=== PATIENT | male | born 1965 | race Caucasian/White ===

== ENCOUNTER 2020-01-11 21:37 | Emergency (ER) | payer MEDICAID ==
[~2020-01-11] VITALS: Ht 167.6 cm; Wt 77.1 kg
--- NOTE | 2020-01-11 21:59 | NUR ---
BIB EMS PICKED UP FROM THE BUS STATION C/O ETOH. "I NEED A SHOT OF ATIVAN". PT AAOX3, VSS. CALM & COOPERATIVE. RR EVEN & UNLABORED. DENIES CP, SOB, DIZZINESS, N/V AT THIS TIME. PT EVAL'D BY SUNDEEP ESPINAL. WILL CONT TO MONITOR.
[2020-01-11 22:16] LABS: BASOPHILS # (AUTO) 0.1 /CMM (0.0-0.2); BASOPHILS % (AUTO) 2.9 % (0.0-2.0); HEMATOCRIT 39 % (39-51); LYMPHOCYTES # (AUTO) 1.2 /CMM (0.8-4.8); LYMPHOCYTES % (AUTO) 28.2 % (20.0-44.0); MEAN CORPUSCULAR HGB CONC 33 g/dl (31.0-36.0); MEAN CORPUSCULAR VOLUME 97 fL (80-96); MONOCYTES # (AUTO) 0.6 /CMM (0.1-1.30); MONOCYTES % (AUTO) 13.8 % (2.0-12.0); NEUTROPHILS # (AUTO) 2.1 /CMM (1.8-8.9); NEUTROPHILS % (AUTO) 50.1 % (43.0-81.0); PLATELET COUNT (AUTO) 180 /CMM (150-450); RED BLOOD CELL COUNT(AUTO) 4.04 MIL/uL (4.5-6.0); WHITE BLOOD COUNT (AUTO) 4.1 K/uL (4.3-11.0)
--- NOTE | 2020-01-11 22:34 | NUR ---
Patient is resting comfortably in bed with eyes closed. Easily aroused. VSS. URINE COLLECTED & SENT TO LAB.
[2020-01-11 22:40] LABS: ALBUMIN 3.7 g/dL (3.4-5.0); BILIRUBIN,DIRECT 0.1 mg/dL (0.0-0.2); BILIRUBIN,TOTAL 0.3 mg/dL (0.2-1.0); CALCIUM, SERUM 7.9 mg/dL (8.5-10.1); CREATININE 1.1 mg/dL (0.6-1.3); POTASSIUM 3.6 mmol/L (3.5-5.1); SALICYLATE 7.1 mg/dL (2.8-20.0); TOTAL PROTEIN, SERUM 6.6 g/dL (6.4-8.2)
[2020-01-11 23:42] LABS: APPEARANCE,URINE CLEAR (CLEAR); BILIRUBIN,URINE SMALL (NEGATIVE); BLOOD, URINE NEGATIVE Ery/uL (NEGATIVE); COLOR,URINE YELLOW (YELLOW); KETONES,URINE TRACE (NEGATIVE); LEUKOCYTE ESTERASE ,URINE NEGATIVE (NEGATIVE); NITRITE, URINE NEGATIVE (NEGATIVE); PROTEIN,URINE TRACE mg/dl (NEGATIVE); UGLUCOSE NEGATIVE (NEGATIVE)
[2020-01-12 00:13] LABS: BACTERIA,URINE None seen /HPF (None Seen); RBC,URINE 0-2 /HPF (0-2); SQUAMOUS EPITHELIAL CELL,UR Few /HPF (None Seen); WBC,URINE 0-2 /HPF (0-3)
--- NOTE | 2020-01-12 00:16 | NUR ---
PT ASLEPP, EASILY AROUSABLE, NO ACUTE DISTRESS NOTED, RESP EVEN AND UNLABORED. NO PAIN OR DISCOMFORT NOTED. CALL LIGHT WITHIN REACH. WILL CONTINUE TO MONITOR PT CLOSELY. 1:1 SITTER REMAINS AT BEDSIDE.
--- NOTE | 2020-01-12 05:01 | NUR ---
KAYLEE PANTOJA CHERRY CUTTER AT BEDSIDE TO HARJINDER PT. PT CALM AND COOPERATIVE AT THIS TIME.
[2020-01-12 05:46] VITALS: BP 118/78
--- NOTE | 2020-01-12 05:46 | NUR ---
Patient discharged to home in stable condition. Written and verbal after care instructions given. Patient verbalizes understanding of instruction. Pt ambulated with steady gait. vss.
== END 2020-01-12 05:46 | disposition home or self-care (01) ==
LOC: ER 21:41
DX: F10.129 Alcohol abuse with intoxication, unspecified (principal); R45.851 Suicidal ideations; R41.82 Altered mental status, unspecified; F31.9 Bipolar disorder, unspecified; Y90.8 Blood alcohol level of 240 mg/100 ml or more; Z88.0 Allergy status to penicillin; Z91.012 Allergy to eggs; Z59.0 Homelessness
CPT/HCPCS: 36415; 71045; 80048; 80076; 80305; 80307; 80329; 81001; 85025; 99285; G0480; 81000-TC

== ENCOUNTER 2020-07-07 12:03 | Emergency (ER) | payer MEDICAID ==
[~2020-07-07] VITALS: Ht 172.7 cm; Wt 90.7 kg
--- NOTE | 2020-07-07 13:59 | NUR ---
URINE SAMPLE COLLECTED AND SENT TO LAB
[2020-07-07 14:13] LABS: BASOPHILS # (AUTO) 0.1 /CMM (0.0-0.2); CALCIUM, SERUM 7.9 mg/dL (8.5-10.1); CREATININE 0.9 mg/dL (0.6-1.3); EOSINOPHILS % (AUTO) 6.1 % (0.0-6.0); HEMATOCRIT 42 % (39-51); LYMPHOCYTES # (AUTO) 1.6 /CMM (0.8-4.8); MEAN CORPUSCULAR HGB CONC 33 g/dl (31.0-36.0); MEAN CORPUSCULAR VOLUME 90 fL (80-96); MONOCYTES # (AUTO) 1.2 /CMM (0.1-1.30); MONOCYTES % (AUTO) 13.2 % (2.0-12.0); NEUTROPHILS # (AUTO) 5.8 /CMM (1.8-8.9); NEUTROPHILS % (AUTO) 62.7 % (43.0-81.0); PLATELET COUNT (AUTO) 243 /CMM (150-450); POTASSIUM 3.7 mmol/L (3.5-5.1); RED BLOOD CELL COUNT(AUTO) 4.65 MIL/uL (4.5-6.0); WHITE BLOOD COUNT (AUTO) 9.3 K/uL (4.3-11.0)
[2020-07-07 14:21] LABS: ALBUMIN 3.4 g/dL (3.4-5.0); BILIRUBIN,DIRECT 0.1 mg/dL (0.0-0.2); BILIRUBIN,TOTAL 0.2 mg/dL (0.2-1.0); TOTAL PROTEIN, SERUM 6.6 g/dL (6.4-8.2)
[2020-07-07 14:35] LABS: BILIRUBIN,URINE NEGATIVE (NEGATIVE); COLOR,URINE YELLOW (YELLOW); LEUKOCYTE ESTERASE ,URINE NEGATIVE (NEGATIVE); NITRITE, URINE NEGATIVE (NEGATIVE); PH,URINE 5.5 (5.0-8.0); PROTEIN,URINE NEGATIVE (NEGATIVE); UGLUCOSE NEGATIVE (NEGATIVE); UROBILINOGEN,URINE 0.2 EU/dL (0.2)
--- NOTE | 2020-07-07 15:52 | NUR ---
SS Note: SW attempted to meet with pt. to conduct ETOH interventions. However, pt. sleeping and not rousable to verbal cues. This pt. is a 55 year old male who was BIBRA for public intoxication. per EMR. SW left addiction resources in patient's discharge packet in chart. SW provided pt. wiht the following resources: Substance Abuse resources provided included: [facility] Substance Abuse Self-Helpline ([facility]) ; CRI -HELP 92176 [facility]. [place] [address] ; [facility] 70182 [facility] 61872 ; [facility] 04972 [facility] 91304 ; [facility] 400 [facility] [phone] ; [facility] 4336 Gadiel Vitale [facility] [address]1403 ; [facility] 909 Community Healthvd[facility] Blind Babies [phone] ; [facility] Substance Abuse Helpline([facility])-[facility] ; Action Family [facility] ; [facility]; [facility] [place]; Cri-Help [place]; I-ADARP Inter Agency Drug Abuse Recovery Gadiel Vitale; [facility] [place]; [facility] [place]; [facility], [facility]. [place]; Alcoholics Anonymous -SFV; Gj-Bqjq-Opffwzu ; Marijuana Anonymous -SFV; Narcotics Anonymous www.na.org; Mental Health resources provided: [facility] [address] [place], [place] [address] ; [facility] Health [place], [facility]. 91584 [facility] [address], [place], [place] [id number] ; [facility] [address] [place] [address] ; [facility] [address] [place], [place] [id number] Healthcare Clinics: [facility] 6551 [facility], [address] [place]. [place] ; [facility] 6801 [facility] [address] [place] [address]; [facility] [address] [place] [address] [phone]
--- NOTE | 2020-07-07 21:18 | NUR ---
PATIENT IS AMBULATORY WITH A STEADY GAIT. PATIENT IS AAOX4. NO SOB. BREATHING EVENLY AND UNLABORED ON ROOM AIR. PT'S DISCHARGE VITALS, 134/67 96HR. 99% 16RR. PATIENT IS CALLING UBER TO PICK HIM UP.
[2020-07-07] MEDS: LORAZEPAM 1 MG TABLET PO ONE (21:21)
--- NOTE | 2020-07-07 21:23 | NUR ---
Patient discharged to home in stable condition. Written and verbal after care instructions given. Patient verbalizes understanding of instruction.
[2020-07-07] MEDS ORDERED: LORAZEPAM 1 MG TABLET ONE (21:24)
[2020-07-07] MEDS ORDERED: LORAZEPAM 0.5 MG TABLET ONE (21:26)
[2020-07-07 21:43] VITALS: BP 134/76
== END 2020-07-07 21:33 | disposition home or self-care (01) ==
LOC: ER 12:20
DX: S00.01XA Abrasion of scalp, initial encounter (principal); S00.81XA Abrasion of other part of head, initial encounter; R51.9 Headache, unspecified; R00.0 Tachycardia, unspecified; F10.129 Alcohol abuse with intoxication, unspecified; F31.9 Bipolar disorder, unspecified; Y90.8 Blood alcohol level of 240 mg/100 ml or more; Z88.0 Allergy status to penicillin; Z91.012 Allergy to eggs; Z59.0 Homelessness; X58.XXXA Exposure to other specified factors, initial encounter; Y93.89 Activity, other specified; Y92.89 Other specified places as the place of occurrence of the external cause; Y99.8 Other external cause status
CPT/HCPCS: 36415; 70450-TC; 80048-TC; 80076-TC; 85025-TC; G0480

== ENCOUNTER 2020-10-20 10:17 | Emergency (ER) | payer MEDICAID ==
[~2020-10-20] VITALS: Ht 172.7 cm; Wt 65.8 kg
--- NOTE | 2020-10-20 10:30 | NUR ---
The patient is [id number], from street, +SI but no plan,admits on drinking 3 bottles of wine. Safety check done. Sitter at the bedside. Will continue to monitor the patient.
--- NOTE | 2020-10-20 10:33 | NUR ---
called security for wanding
[2020-10-20 10:58] LABS: BASOPHILS # (AUTO) 0.1 /CMM (0.0-0.2); BASOPHILS % (AUTO) 1.1 % (0.0-2.0); EOSINOPHILS % (AUTO) 3.3 % (0.0-6.0); HEMATOCRIT 40 % (39-51); HEMOGLOBIN 13.4 g/dL (13.5-17.5); LYMPHOCYTES # (AUTO) 1.5 /CMM (0.8-4.8); LYMPHOCYTES % (AUTO) 26.8 % (20.0-44.0); MEAN CORPUSCULAR HGB CONC 33 g/dl (31.0-36.0); MEAN CORPUSCULAR VOLUME 94 fL (80-96); MONOCYTES # (AUTO) 0.5 /CMM (0.1-1.30); MONOCYTES % (AUTO) 9.5 % (2.0-12.0); NEUTROPHILS # (AUTO) 3.3 /CMM (1.8-8.9); NEUTROPHILS % (AUTO) 59.3 % (43.0-81.0); PLATELET COUNT (AUTO) 234 /CMM (150-450); RED BLOOD CELL COUNT(AUTO) 4.31 MIL/uL (4.5-6.0); WHITE BLOOD COUNT (AUTO) 5.5 K/uL (4.3-11.0)
[2020-10-20 11:00] LABS: BILIRUBIN,URINE Negative (NEGATIVE); COLOR,URINE YELLOW (YELLOW); LEUKOCYTE ESTERASE ,URINE Negative (NEGATIVE); NITRITE, URINE Negative (NEGATIVE); PH,URINE 6.5 (5.0-8.0); PROTEIN,URINE Negative (NEGATIVE); UGLUCOSE Negative (NEGATIVE); UROBILINOGEN,URINE 0.2 EU/dL (0.2)
[2020-10-20 11:05] LABS: POTASSIUM 3.8 mmol/L (3.5-5.1)
[2020-10-20 11:12] LABS: ALBUMIN 3.6 g/dL (3.4-5.0); BILIRUBIN,DIRECT 0.1 mg/dL (0.0-0.2); BILIRUBIN,TOTAL 0.2 mg/dL (0.2-1.0); TOTAL PROTEIN, SERUM 6.8 g/dL (6.4-8.2)
[2020-10-20 11:43] LABS: CALCIUM, SERUM 8.5 mg/dL (8.5-10.1)
--- NOTE | 2020-10-20 15:33 | NUR ---
Plan: YAO referred pt. to [facility] [[address] [place] [address] FAX:[phone]] for inpatient psychiatric treatment.
--- NOTE | 2020-10-20 15:50 | NUR ---
"SS Consult: PARKER Cloud requested for this 55-year old male who presents to the ED with c/o SI w/plan. However, pt. refused to specify stating, It would be pointless if I told you my plan. YAO explored triggers for SI. Pt. stated hopelessness is what triggers the SI. YAO explored pt.s mental health Hx. Pt. states he sees a psychiatrist, Nghia Connell via Zoom at [facility] [[email or web address]; [address] [place] [address]; ]. Pt. stated he has been diagnosed with Bipolar 1 and is non-compliant with his psych medications. SW offered pt. voluntary psych Tx. and pt. agreed. YAO explored pt.s living situation, support system and alcohol use. Patient stated that he was renting an apartment with other men who are trying to remain sober and it is not an official sober living. Patient stated he has been experiencing homelessness the last 4 days since he relapsed into alcoholism. Pt. stated he goes on binges that can last weeks. Per pt. he drinks about 5 liters of wine/ daily. Pt. stated that he has no support system: no or children and does not communicate with family. Plan: YAO referred pt. to [facility] [[facility] [place] [address] FAX:[phone]] for inpatient psychiatric treatment. Patient signed homeless waiver & it was placed in the pt.s chart. YAO provided pt. with homeless resources and he accepted them: Addendum: 10/20/20 at 1551 by JAQUAN SAMAYOA Resources provided include: Substance Abuse resources provided included: [facility] Substance Abuse Self-Helpline ([facility]) ; CRI -HELP 89436 [facility]. [place] [address] ; [facility] [place] 62588 [facility] [address] ; [facility] 07352 [place] [facility] [address] ; [facility] 400 NNorthwestern Medical Center [address] ; [facility] 6431 Gadiel Vitale [facility] [address] ; Enviance 90 [facility] Al[facility] Regional[facility] [id number] ; Community [facility] Substance Abuse Helpline([facility])-[facility] ; [facility] ; [facility] [place]; Cri-Help [place]; I-ADARP Inter Agency Drug Abuse Recovery Gadiel Vitale; [place] [facility] [place]; [facility] [place]; [facility] [place]; [facility] [place]; Alcoholics Anonymous -SFV; Kp-Zynz-Veewulg ; Marijuana Anonymous -SFV; Narcotics Anonymous www.na.org; Year-round shelters: [facility] [address] [place] [address] ; [facility] [place] [address] [place] [address]; [place] [facility] [address] [facility] [address] Winter Shelters: Rasheed Morris Silvia Provider: Volunte[facility] Wendi [place] Address: [address]. [place], [address] # of Beds: 47 Population Served: [facility] 6 | [facility] Jennifer Schwab [place]ber[place] Provider: Home at Last Address: [address], [address] # of Beds: 66 Population Served: [facility] Qawalangin Elberta Provider: First to Serve Address: 93339 [facility], [address] # of Beds: 56 Population Served: [facility] Ric Gautam Park Provider: SSDanielle/Ms. Vivas'chantelle House Address: 8908 [facility], [address] # of Beds: 49 Population Served: [facility] 8 | [facility] Provider: First to Serve Address: 3535 [facility]. [place], [address] # of Beds: 37 Population Served: [facility] Hygiene: [employer] [employer]: [address] [place] [facility] ; [place] [place] [facility] [address]252 [facility] ; [facility] 3871 [facility] . Food Resources: [place] Food Pantry at [facility]- 5700 [facility]; Meet Each Need with Dignity ([facility]) 32069 Van Ness CampusMitzi Aldrich; [facility] Food Pantry 9361 [facility]; [facility] 2989 [facility]. Mental Health resources provided: [facility] [address] [place] , [place] [address] ; [facility] Mental Health [place], Inc. 91935 [facility] [address], [place] [address] ; [facility] Urgent Care Center 35151 [place] [address] ; [facility] [address] [place], [place] [id number] Healthcare Clinics: [facility] [address] [place], [address] [place]. [place] ; [facility] 6801 [facility] [address] [place] [address]; [place] [address] [place] [address] [phone]) [phone] Counseling--Outpatient [facility] 4419 [facility], [place] [address] (Specializes in in-depth psychotherapy for emotional distress: anxiety, depression, interpersonal conflicts, life transitions, childhood abuse) [facility] [address] [place] [address] (Assist with solving problem marital difficulties, separation & divorce, aging parents, & grief, chronic & terminal illness) [facility] [address] [place] [address] (Deal with loss & grief, anxiety, marital difficulties) Homebound/Mental Health Services 43894 Pramodanthony [facility], [address] [place] [address] (Provide in-home mental services to people who are incapable of leaving their homes) Organization for Needs of the Elderly Senior Service/Resource Center [address] [place] [address] [facility] 6514 Flowers [place] [address] PSYCHIATRIC OUTPATIENT SERVICES [facility] Partial Hospitalization and Intensive Outpatient Program (Managed Care and [place] Only)[address]24 Yogi Barba. [facility] [phone] [place] [facility] Partial Hospitalization and Outpatient [id number] [place] [facility]. [address] [place], [place] [phone] [facility] Partial Hospitalization and Outpatient [id number] Gadiel Vitale [facility]. [place], [place] [phone] [facility]ITAL[facility] Community [facility] [id number] [address]. [address] [place], [place] [phone] [facility] Win[facility]red Partial Hospitalization and Outpatient [id number] [facility] Gadiel Vitale, [phone] "
--- NOTE | 2020-10-20 18:37 | NUR ---
covid 19 swab collected and sent to lab.
--- NOTE | 2020-10-20 19:42 | NUR ---
RAPID IS NEGATIVE COVID
--- NOTE | 2020-10-20 20:12 | NUR ---
PT AAOX4. STILL C/O SUICIDAL IDEATION WITH PLAN TO JUMP OFF BRIDGE. PT REQUESTING VOLUNTARY ADMISSION TO PSYCH FACILITY. AWARE
[2020-10-20] MEDS ORDERED: LORAZEPAM 1 MG TABLET PO ONE (21:00)
[2020-10-20] MEDS ORDERED: LORAZEPAM 1 MG TABLET ONE (21:22)
--- NOTE | 2020-10-21 00:18 | NUR ---
BRENNON FRANKLIN AT [facility] INTAKE PT WILL BE UNDER DR MENDENHALL AT UNIT 2.
--- NOTE | 2020-10-21 00:25 | NUR ---
CALLED [facility] FOR [facility]SPORTATION. WILL CALL BACK WITH ETA. RESERVATION #[id number]
--- NOTE | 2020-10-21 01:30 | NUR ---
[facility] ETA [phone]
[2020-10-21 02:45] VITALS: BP 138/83
--- NOTE | 2020-10-21 02:46 | NUR ---
REPORT GIVEN TO ESTHER JUAREZ FROM [facility] FOR GABRIELLE
--- NOTE | 2020-10-21 02:48 | NUR ---
REPORT GIVEN TO [facility] AT [facility] FOR TRANSPORTATION GABRIELLE
== END 2020-10-21 02:56 ==
LOC: ER 10:23
DX: R45.851 Suicidal ideations (principal); F10.229 Alcohol dependence with intoxication, unspecified; Y90.8 Blood alcohol level of 240 mg/100 ml or more; F31.9 Bipolar disorder, unspecified; Z91.012 Allergy to eggs; Z88.0 Allergy status to penicillin; Z91.013 Allergy to seafood; Z20.822 Contact with and (suspected) exposure to COVID-19
CPT/HCPCS: 36415; 80048; 80076; 80143; 80307; 80320 ×2; 81003; 85025; 87426; 99285; C9803; G0480

== ENCOUNTER 2020-12-16 03:46 | Emergency (ER) | payer MEDICAID, OTHER ==
[~2020-12-16] VITALS: Ht 170.2 cm; Wt 72.6 kg
--- NOTE | 2020-12-16 03:50 | NUR ---
TO ER BED REQUESTING MEDICAL CLEARANCE FOR VOLUNTARY PSYCH ADMISSION. PT C/O SI WITH PLAN TO HANG SELF. DENIES HI. PT AAOX4 NO ACUTE DISTRESS NOTED, RESP EVEN AND UNLABORED. PT CALM AND COOPERATIVE AT THIS TIME.
--- NOTE | 2020-12-16 05:07 | NUR ---
URINE SAMPLE COLLECTED AND SENT TO LAB.
--- NOTE | 2020-12-16 05:09 | NUR ---
LICENSE EXAMINER AT BEDSIDE FOR BLOOD DRAW.
--- NOTE | 2020-12-16 05:15 | NUR ---
BLOOD DRAWN BY NEWS INTERNSHIP.
[2020-12-16 05:27] LABS: BASOPHILS # (AUTO) 0.1 K/uL (0.0-0.2); BASOPHILS % (AUTO) 1.1 % (0.0-2.0); EOSINOPHILS % (AUTO) 4.3 % (0.0-6.0); HEMATOCRIT 46 % (39-51); HEMOGLOBIN 15.7 g/dL (13.5-17.5); LYMPHOCYTES # (AUTO) 1.5 K/uL (0.8-4.8); LYMPHOCYTES % (AUTO) 21.7 % (20.0-44.0); MEAN CORPUSCULAR HGB CONC 34 g/dl (31.0-36.0); MEAN CORPUSCULAR VOLUME 93 fL (80-96); MONOCYTES # (AUTO) 0.9 K/uL (0.1-1.30); MONOCYTES % (AUTO) 12.6 % (2.0-12.0); NEUTROPHILS # (AUTO) 4.2 K/uL (1.8-8.9); NEUTROPHILS % (AUTO) 60.3 % (43.0-81.0); PLATELET COUNT (AUTO) 286 K/uL (150-450); RED BLOOD CELL COUNT(AUTO) 4.99 MIL/uL (4.5-6.0)
[2020-12-16 05:28] LABS: BILIRUBIN,URINE SMALL (NEGATIVE); COLOR,URINE YELLOW (YELLOW); LEUKOCYTE ESTERASE ,URINE Negative (NEGATIVE); NITRITE, URINE Negative (NEGATIVE); PROTEIN,URINE 30 mg/dl (NEGATIVE); UGLUCOSE Negative (NEGATIVE); UROBILINOGEN,URINE 0.2 EU/dL (0.2)
[2020-12-16 05:38] LABS: CALCIUM, SERUM 9.5 mg/dL (8.5-10.1); CREATININE 1.4 mg/dL (0.6-1.3); POTASSIUM 3.6 mmol/L (3.5-5.1)
[2020-12-16 05:45] LABS: ALBUMIN 4.4 g/dL (3.4-5.0); BILIRUBIN,DIRECT 0.2 mg/dL (0.0-0.2); BILIRUBIN,TOTAL 0.6 mg/dL (0.2-1.0)
--- NOTE | 2020-12-16 06:24 | NUR ---
CLINICAL AND FACESHEET FAXED TO [facility] FOR VOLUNTARY PSYCH ADMISSION.
[2020-12-16 06:28] VITALS: BP 134/62
--- NOTE | 2020-12-16 10:09 | NUR ---
THE PATIENT ALERT AND ORIENTED X4. DENIES HAVING ANY DISTRESS. RESPIRATION REGULAR AND UNLABORED. WILL CONTINUE TO MONITOR THE PATIENT.
--- NOTE | 2020-12-16 10:16 | NUR ---
PT ACCEPTED TO [facility] UNIT [address] MADDEN CALL [phone] FOR REPORT.
--- NOTE | 2020-12-16 10:23 | NUR ---
TRANSPORT [facility] CALLED DAWNA RUTLEDGE 45 MINS.
--- NOTE | 2020-12-16 10:32 | NUR ---
REPORT GIVEN TO NURSE BRITTANY FROM KASSI MCCLELLAN
--- NOTE | 2020-12-16 10:35 | NUR ---
"SS Consult: SS consult requested for SI, ETOH abuse & Homelessness. The pt. is a 55-year old male. The pt. appears well-groomed with swollen feet. The pt. is A&O X4 and makes good eye contact and appears restless and fidgeting. Pt.s mood is elevated has pressure speech and circumstantial thought process. Pt. stated he came [facility] seeking medical clearance to go to [facility] as he has been experiencing SI W/no plan. Pt. states he has had a manic episode the last couple of days. Per pt. he was experiencing auditory hallucinations where he hears bullets and has been running. Per pt., I thought people were trying to hurt me. YAO explored pt.s living situation. Pt. states he has been homeless for a a while. YAO explored pt.s mental health Hx. Pt. states he has been diagnosed with Bipolar Disorder and has been prescribed Seroquel, Elavil and Naltrexone. However, pt. states he is unable to afford the copay and therefore has been non complaint with these medication as of late. Pt. stated he is employed and his employer will hold his job until he is stable enough to work. YAO explored pt.s drug & ETOH use. Patient stated he is an alcoholic and stated, probably since the age of 17 and states he may have taken Ecstacy yesterday when he was having a manic episode. Pt. states he is ambulatory. YAO explored pt.s support system. Pt. states he has a brother Stu Valdes [phone]. Plan: YAO referred pt. to [facility] [[address] [place] [address] FAX:[phone]] for inpatient psychiatric treatment. Patient requested to be referred to a residential rehab facility for alcoholism for after he is discharged from [facility]. YAO will follow up and make referrals. Pt. signed homeless waiver and it was placed in the chart. YAO provided pt. with homeless, and mental health resources and he accepted them : Year-round shelters: [place] [address] [address] ; [facility] [place] [address] [place] [address]; [place] [facility] [address] [facility] [address] Winter Shelters: Rasheed Vega Provider: Lorena of Wendi [place] Address: [address]. [place], [address] # of Beds: 47 Population Served: [facility] 6 | [facility] Jennifer Schwab [place] Provider: Home at Last Address: [address] [place] [address], [address] # of Beds: 66 Population Served: [facility] [place] S[place]tuck Provider: First to Serve Address: [address] [facility], [address] # of Beds: 56 Population Served: [facility] Rci Gautam Park Provider: /Ms. Vivas's House Address: 8908 [facility], [address] # of Beds: 49 Population Served: [facility] 8 | [facility] Provider: First to Serve Address: 3535 [facility]. [place], [address] # of Beds: 37 Population Served: [facility] Hygiene: [place] [employer]: [address] [place] luz [place] ; [facility] [address]006 [facility] ; [facility] 5833 [facility] . Food Resources: [place] Food Pantry at [facility]- 5700 [facility]; Meet Each Need with Dignity ([facility]) 91312 [facility]; [facility] Food Pantry 9217 [facility]; [facility] 2027 [facility]. Mental Health resources provided: [facility] [address] [place] , [place] [address] ; [facility] Mental Health [place], Inc. 29080 [facility] [address] 2, [place] [address] ; [facility] Urgent Care Center 92300 [place] [address] ; [facility] [address] [place] [address] Healthcare Clinics: [facility] 6551 [facility] [place], [address] [place]. [place] ; [facility] 6801 [facility] [address] [place] [address]; [facility] [address] [facility] [place] [address] [phone] Counseling--Outpatient [facility] 4419 [facility], [place] [address] (Specializes in in-depth psychotherapy for emotional distress: anxiety, depression, interpersonal conflicts, life transitions, childhood abuse) [facility] [address] [place] [address] (Assist with solving problem marital difficulties, separation & divorce, aging parents, & grief, chronic & terminal illness) [facility] [address] [place] [address] (Deal with loss & grief, anxiety, marital difficulties) Homebound/Mental Health Services 41924 PramodKettering Health [facility], [address] [place] [address] (Provide in-home mental services to people who are incapable of leaving their homes) Organization for Needs of the Elderly Senior Service/Resource Center [address] [place] [address] [facility] [address] [place] [address] PSYCHIATRIC OUTPATIENT SERVICES [facility] Partial Hospitalization and Intensive Outpatient Program (Managed Care and [place] Only)[address]502 Yogi Barba. [facility] [phone] [facility] Partial Hospitalization and Outpatient [id number] EllavilleNovant Health Rehabilitation [facility]. [address] [place], [place] [phone] [facility] [id number] Cristian [facility]. [address] [place], [place] [phone] [facility] Winifred Partial Hospitalization and Outpatient Piopdbp59908 Joel Conte, [phone] Substance Abuse resources provided included: [facility] Substance Abuse Self-Helpline ([facility]) ; CRI -HELP [address]86 [facility]. [place] [address] ; [facility] Treatment [place] [address] [facility] [address] ; [facility] Rehabilitation Program 93516 [facility] [address] ; [facility] 400 NNortheastern Vermont [facility] 56461 ; [facility] [address] [facility] [facility] [address] ; [facility] 909 [facility]. [facility] [id number] ; [facility] Substance Abuse Helpline([facility])Mary Starke Harper [facility] ; Action [facility] ; [facility] Salters; [facility]; Cri-Help [place]; I-ADARP Inter Agency Drug Abuse Recovery Gadiel Vitale; [place] [facility] [place]; Dixon Rawlings [place]; TarPrime Healthcare Services [place]; [facility], [facility]. [place]; Alcoholics Anonymous -SFV; Rb-Unmw-Wxtllzb ; Marijuana Anonymous -SFV; Narcotics Anonymous www.na.org;"
--- NOTE | 2020-12-16 10:40 | NUR ---
YAO faxed clinicals to [facility] FAX [phone] TEL [phone] for residential treatment after stabilization at [facility].
--- NOTE | 2020-12-16 11:17 | NUR ---
TRANSPORTED TO [facility] IN STABLE CONDITION.
== END 2020-12-16 11:18 ==
LOC: ER 03:52
DX: R45.851 Suicidal ideations (principal); F19.10 Other psychoactive substance abuse, uncomplicated; F15.10 Other stimulant abuse, uncomplicated; F14.10 Cocaine abuse, uncomplicated; F31.9 Bipolar disorder, unspecified; Z20.822 Contact with and (suspected) exposure to COVID-19; Z91.012 Allergy to eggs; Z88.0 Allergy status to penicillin; Z91.013 Allergy to seafood; Z59.0 Homelessness; F10.20 Alcohol dependence, uncomplicated; Y90.3 Blood alcohol level of 60-79 mg/100 ml
CPT/HCPCS: 36415; 80048; 80076; 80143; 80307; 80320; 81003; 85025; 87426; 99285; C9803; G0480

== ENCOUNTER 2021-04-23 05:14 | Emergency (ER) | payer OTHER ==
[~2021-04-23] VITALS: Ht 167.6 cm; Wt 81.6 kg
[2021-04-23] MEDS ORDERED: LORAZEPAM 1 MG TABLET PO ONE ×2 (05:30→15:30)
--- NOTE | 2021-04-23 05:31 | NUR ---
PATIENT BIBSELF C/O SI WITH PLAN, VOL PSYCH ADMIT, MED CLEARANCE, PLAN TO TO JUMP INTO TRAFFIC DENIES HI. PATIENT IS A/O X 3, RR EVEN AND UNLABORED, NO SOB NOTED. PATIENT CONNECTED TO FUEL EFFICIENT AUTOMOBILE DESIGNER AND POX. BELONGINGS COLLECTED, PT IN HOSPITAL GOWN, SITTER AT BEDSIDE.
--- NOTE | 2021-04-23 05:33 | NUR ---
FEEDER SWITCHBOARD OPERATOR AT BEDSIDE
--- NOTE | 2021-04-23 05:39 | NUR ---
COVID AND URINE COLLECTED AND SENT TO LAB
[2021-04-23 05:56] LABS: BASOPHILS # (AUTO) 0.1 K/uL (0.0-0.2); BASOPHILS % (AUTO) 1.9 % (0.0-2.0); EOSINOPHILS % (AUTO) 3.9 % (0.0-6.0); HEMATOCRIT 36 % (39-51); HEMOGLOBIN 11.9 g/dL (13.5-17.5); LYMPHOCYTES # (AUTO) 2.3 K/uL (0.8-4.8); LYMPHOCYTES % (AUTO) 29.5 % (20.0-44.0); MEAN CORPUSCULAR HGB CONC 34 g/dl (31.0-36.0); MEAN CORPUSCULAR VOLUME 91 fL (80-96); MONOCYTES # (AUTO) 0.8 K/uL (0.1-1.30); MONOCYTES % (AUTO) 10.8 % (2.0-12.0); NEUTROPHILS # (AUTO) 4.2 K/uL (1.8-8.9); NEUTROPHILS % (AUTO) 53.9 % (43.0-81.0); PLATELET COUNT (AUTO) 514 K/uL (150-450); WHITE BLOOD COUNT (AUTO) 7.8 K/uL (4.3-11.0)
[2021-04-23 06:04] LABS: BILIRUBIN,URINE NEGATIVE (NEGATIVE); COLOR,URINE YELLOW (YELLOW); LEUKOCYTE ESTERASE ,URINE NEGATIVE (NEGATIVE); NITRITE, URINE NEGATIVE (NEGATIVE); PH,URINE 5.5 (5.0-8.0); PROTEIN,URINE NEGATIVE (NEGATIVE); UGLUCOSE NEGATIVE (NEGATIVE); UROBILINOGEN,URINE 0.2 EU/dL (0.2)
[2021-04-23 06:29] LABS: CALCIUM, SERUM 8.9 mg/dL (8.5-10.1); CARBON DIOXIDE 26 mmol/L (21-32); CHLORIDE 108 mmol/L (98-107); GLUCOSE 115 mg/dL (74-106); SODIUM SERUM 145 mmol/L (136-145); UREA NITROGEN, BLOOD 11 mg/dL (7-18)
[2021-04-23] MEDS ORDERED: IV NS 0.9% 1,000 ML BAG IV ONE (06:30)
[2021-04-23] MEDS ORDERED: Thiamine 100 MG in IV D5W 50 ML IV SCH (06:30)
[2021-04-23] MEDS ORDERED: Thiamine 100 MG/ML VIAL ONE (06:32)
[2021-04-23 06:37] LABS: ALANINE AMINOTRANSFERASE 42 U/L (12-78); ALBUMIN 3.5 g/dL (3.4-5.0); ALCOHOL, BLOOD 259 mg/dL (0-0); ALKALINE PHOSPHATASE 102 U/L (46-116); ASPARTATE AMINOTRANSFERASE 33 U/L (15-37); BILIRUBIN,DIRECT 0.1 mg/dL (0.0-0.2); BILIRUBIN,TOTAL 0.2 mg/dL (0.2-1.0); TOTAL PROTEIN, SERUM 6.8 g/dL (6.4-8.2)
[2021-04-23 06:47] LABS: ACETAMINOPHEN < 10 ug/ml (10-30)
--- NOTE | 2021-04-23 08:00 | NUR ---
ASSESSED PT ON BED AWAKE AND ALERT, NOT IN RESPIRATORY DISTRESS, V/S STABLE, KEPT RESTED AND COMFORTABLE. FOOD TRAY PROVIDED. WILL CONTINUE TO MONITOR.
[2021-04-23] MEDS ORDERED: LORAZEPAM 1 MG TABLET ONE (15:43)
[2021-04-23 18:12] VITALS: BP 127/72
--- NOTE | 2021-04-23 18:38 | NUR ---
[facility]ED CLIN[facility]
--- NOTE | 2021-04-24 04:27 | NUR ---
FOLLOWED UP WITH [facility] INTA[facility], STILL BEING REVIEWED AND WILL CALL BACK ONCE ACCEPTED.
--- NOTE | 2021-04-24 05:46 | NUR ---
[facility] UNDER THE CARE OF DR. NY. CALL [phone] FOR REPORT.
--- NOTE | 2021-04-24 05:46 | NUR ---
PT ACCEPTED AT [facility] UNDER THE CARE OF DR. NY. CALL [phone] FOR REPORT.
--- NOTE | 2021-04-24 05:47 | NUR ---
REPORT GIVEN TO WALLY SANTANA FOR GABRIELLE
--- NOTE | 2021-04-24 05:59 | NUR ---
[facility] ETA @ 1000
--- NOTE | 2021-04-24 07:20 | NUR ---
PT NOT IN BED, ELOPED. ER MD AWARE. WILL CALL [employer] NON EMERGENCY LINE REGARDING INCIDENT.
--- NOTE | 2021-04-24 07:44 | NUR ---
MADE POLICE REPORT FOR PT. AND NOTIFIED OF PT STATUS AND IV ACCESS
== END 2021-04-24 07:32 | disposition left against medical advice (07) ==
LOC: ER 05:20
DX: F10.129 Alcohol abuse with intoxication, unspecified (principal); Y90.8 Blood alcohol level of 240 mg/100 ml or more; R45.851 Suicidal ideations; F19.10 Other psychoactive substance abuse, uncomplicated; Z20.822 Contact with and (suspected) exposure to COVID-19; F31.9 Bipolar disorder, unspecified; Z59.02 Unsheltered homelessness; R00.0 Tachycardia, unspecified; Z91.012 Allergy to eggs; Z88.0 Allergy status to penicillin; Z91.013 Allergy to seafood
CPT/HCPCS: 36415; 80048; 80076; 80143; 80307; 80320 ×2; 81003; 85025; 87426; 93005; 96365; 99285; C9803; J3411; J7060; G0480

== ENCOUNTER 2021-05-09 00:31 | Emergency (ER) | payer OTHER ==
[~2021-05-09] VITALS: Ht 170.2 cm; Wt 74.8 kg
[2021-05-09 01:45] VITALS: BP 147/77
--- NOTE | 2021-05-09 02:15 | NUR ---
PATIENT BIBSELF C/O +SI WITH PLAN. PATIENT IS A/O X 4, RR EVEN AND UNLABORED, NO SOB NOTED. PATIENT NOTED WITH STEADY GAIT. PATIENT BROUGHT TO ER BED, PLACED IN HOSPITAL GOWN, BELONGINGS PLACED IN LOCKER, SITTER AT BEDSIDE. PATIENT CONNECTED TO STUDENT LIAISON OFFICER AND POX.
[2021-05-09 04:50] LABS: ALANINE AMINOTRANSFERASE 40 U/L (12-78); ALCOHOL, BLOOD 63 mg/dL (0-0); ALKALINE PHOSPHATASE 128 U/L (46-116); ASPARTATE AMINOTRANSFERASE 42 U/L (15-37); BILIRUBIN,DIRECT 0.1 mg/dL (0.0-0.2); BILIRUBIN,TOTAL 0.3 mg/dL (0.2-1.0); CALCIUM, SERUM 8.4 mg/dL (8.5-10.1); CARBON DIOXIDE 23 mmol/L (21-32); CHLORIDE 103 mmol/L (98-107); GLUCOSE 97 mg/dL (74-106); POTASSIUM 3.9 mmol/L (3.5-5.1); SODIUM SERUM 138 mmol/L (136-145); TOTAL PROTEIN, SERUM 7.5 g/dL (6.4-8.2); UREA NITROGEN, BLOOD 19 mg/dL (7-18)
[2021-05-09 05:04] LABS: ACETAMINOPHEN < 2 ug/ml (10-30)
[2021-05-09 06:32] LABS: BILIRUBIN,URINE SMALL (NEGATIVE); COLOR,URINE YELLOW (YELLOW); LEUKOCYTE ESTERASE ,URINE NEGATIVE (NEGATIVE); NITRITE, URINE NEGATIVE (NEGATIVE); PH,URINE 5.5 (5.0-8.0); PROTEIN,URINE NEGATIVE (NEGATIVE); UGLUCOSE NEGATIVE (NEGATIVE); UROBILINOGEN,URINE 0.2 EU/dL (0.2)
[2021-05-09 06:41] LABS: BACTERIA,URINE None seen /HPF (None Seen); CALCIUM OXALATE CRYSTALS,UR Few /HPF (None Seen); RBC,URINE 0-2 /HPF (0-2); SQUAMOUS EPITHELIAL CELL,UR Few /HPF (None Seen); WBC,URINE 0-2 /HPF (0-3)
--- NOTE | 2021-05-09 07:07 | NUR ---
FOLLOWED UP WITH LAB REGARDING DRUG SCREEN AND COVID
--- NOTE | 2021-05-09 09:34 | NUR ---
COVID SWAB DONE AND SENT TO LAB
[2021-05-09 09:55] LABS: BASOPHILS # (AUTO) 0.1 K/uL (0.0-0.2); BASOPHILS % (AUTO) 1.4 % (0.0-2.0); EOSINOPHILS % (AUTO) 7.7 % (0.0-6.0); HEMATOCRIT 37 % (39-51); HEMOGLOBIN 12.4 g/dL (13.5-17.5); LYMPHOCYTES # (AUTO) 1.4 K/uL (0.8-4.8); MEAN CORPUSCULAR HGB CONC 33 g/dl (31.0-36.0); MEAN CORPUSCULAR VOLUME 91 fL (80-96); MONOCYTES # (AUTO) 0.5 K/uL (0.1-1.30); MONOCYTES % (AUTO) 12.1 % (2.0-12.0); NEUTROPHILS # (AUTO) 1.9 K/uL (1.8-8.9); NEUTROPHILS % (AUTO) 45.8 % (43.0-81.0); PLATELET COUNT (AUTO) 298 K/uL (150-450); RED BLOOD CELL COUNT(AUTO) 4.11 MIL/uL (4.5-6.0); WHITE BLOOD COUNT (AUTO) 4.2 K/uL (4.3-11.0)
--- NOTE | 2021-05-09 12:54 | NUR ---
PT NO LONGER IN HOLDING ROOM. PT ELOPED.
== END 2021-05-09 12:56 | disposition left against medical advice (07) ==
LOC: ER 00:31
DX: F19.10 Other psychoactive substance abuse, uncomplicated (principal); F15.10 Other stimulant abuse, uncomplicated; F10.20 Alcohol dependence, uncomplicated; Y90.3 Blood alcohol level of 60-79 mg/100 ml; Z20.822 Contact with and (suspected) exposure to COVID-19; Z53.29 Procedure and treatment not carried out because of patient's decision for other reasons; Z91.012 Allergy to eggs; Z88.0 Allergy status to penicillin; Z91.013 Allergy to seafood; F31.9 Bipolar disorder, unspecified
CPT/HCPCS: 36415; 80048; 80076; 80143; 80307; 80320; 81001; 85025; 87426; 99283; C9803; G0480

== ENCOUNTER 2021-05-10 06:03 | Emergency (ER) | payer OTHER ==
[~2021-05-10] VITALS: Ht 170.2 cm; Wt 74.8 kg
--- NOTE | 2021-05-10 07:46 | NUR ---
BIBS FOR SI WITH A PLAN TO HARM TO SELF BY KEEP DRINKING ALCOHOL. DENIES HI. DENIES HAVING ANY TYPE OF HALLUCINATIONS. RESPIRATION REGULAR AND UNLABORED. WILL CONTINUE TO MONITOR THE PATIENT.
[2021-05-10 08:01] LABS: ALBUMIN 3.7 g/dL (3.4-5.0); BILIRUBIN,TOTAL 0.2 mg/dL (0.2-1.0); CALCIUM, SERUM 8.7 mg/dL (8.5-10.1); POTASSIUM 4.3 mmol/L (3.5-5.1); TOTAL PROTEIN, SERUM 7.3 g/dL (6.4-8.2)
[2021-05-10 08:43] LABS: BASOPHILS % (AUTO) 0.4 % (0.0-2.0); EOSINOPHILS % (AUTO) 5.8 % (0.0-6.0); HEMATOCRIT 38 % (39-51); HEMOGLOBIN 12.5 g/dL (13.5-17.5); LYMPHOCYTES # (AUTO) 1.4 K/uL (0.8-4.8); LYMPHOCYTES % (AUTO) 26.7 % (20.0-44.0); MEAN CORPUSCULAR HGB CONC 33 g/dl (31.0-36.0); MEAN CORPUSCULAR VOLUME 91 fL (80-96); MONOCYTES # (AUTO) 0.4 K/uL (0.1-1.30); MONOCYTES % (AUTO) 6.6 % (2.0-12.0); NEUTROPHILS # (AUTO) 3.3 K/uL (1.8-8.9); NEUTROPHILS % (AUTO) 60.5 % (43.0-81.0); PLATELET COUNT (AUTO) 365 K/uL (150-450); RED BLOOD CELL COUNT(AUTO) 4.16 MIL/uL (4.5-6.0); WHITE BLOOD COUNT (AUTO) 5.4 K/uL (4.3-11.0)
[2021-05-10 09:44] LABS: BILIRUBIN,URINE NEGATIVE (NEGATIVE); COLOR,URINE YELLOW (YELLOW); LEUKOCYTE ESTERASE ,URINE NEGATIVE (NEGATIVE); NITRITE, URINE NEGATIVE (NEGATIVE); PH,URINE 5.5 (5.0-8.0); PROTEIN,URINE NEGATIVE (NEGATIVE); UGLUCOSE NEGATIVE (NEGATIVE); UROBILINOGEN,URINE 0.2 EU/dL (0.2)
[2021-05-10 10:24] LABS: BACTERIA,URINE None seen /HPF (None Seen); RBC,URINE 0-2 /HPF (0-2); SQUAMOUS EPITHELIAL CELL,UR Rare /HPF (None Seen)
[2021-05-10 10:25] LABS: MUCUS,URINE Few /LPF (None Seen); URIC ACID CRYSTALS,URINE Rare /HPF (None Seen)
--- NOTE | 2021-05-10 14:39 | NUR ---
YAO faxed clinicals to [facility] [fax:[phone]]. Mo did not recieved previous clinicals.
[2021-05-11 09:00] VITALS: BP 125/68
--- NOTE | 2021-05-11 09:32 | NUR ---
NORA VILLATORO CALLED AT [phone] FOR REPORT, INFORMED THAT PATIENT HAD BEEN PICKED UP BY THEIR TRANSPORT, UNABLE TO GET FULL REPORT SINCE SHE'S IN A MEETING
--- NOTE | 2021-05-11 09:36 | NUR ---
PICKED UP BY JONATHAN [facility]N TRANSPORTER
== END 2021-05-11 09:36 ==
LOC: ER 06:03
DX: R45.851 Suicidal ideations (principal); F19.10 Other psychoactive substance abuse, uncomplicated; Z59.02 Unsheltered homelessness; F31.9 Bipolar disorder, unspecified; F10.229 Alcohol dependence with intoxication, unspecified; Y90.6 Blood alcohol level of 120-199 mg/100 ml; Z20.822 Contact with and (suspected) exposure to COVID-19; Z91.012 Allergy to eggs; Z88.0 Allergy status to penicillin; Z91.013 Allergy to seafood
CPT/HCPCS: 36415 ×2; 80048; 80076; 80143; 80179; 80307; 80320 ×2; 81001; 85025; 87426; 99283; C9803; G0480

== ENCOUNTER 2021-05-25 19:22 | Emergency (ER) | payer OTHER ==
[~2021-05-25] VITALS: Ht 170.2 cm; Wt 77.1 kg
--- NOTE | 2021-05-25 23:03 | NUR ---
KITCHEN HELPER @ BEDSIDE
--- NOTE | 2021-05-25 23:03 | NUR ---
COVID SWAB DONE AND SENT TO LAB
[2021-05-25 23:39] LABS: BILIRUBIN,URINE NEGATIVE (NEGATIVE); COLOR,URINE YELLOW (YELLOW); LEUKOCYTE ESTERASE ,URINE NEGATIVE (NEGATIVE); NITRITE, URINE NEGATIVE (NEGATIVE); PH,URINE 5.5 (5.0-8.0); PROTEIN,URINE NEGATIVE (NEGATIVE); UGLUCOSE NEGATIVE (NEGATIVE); UROBILINOGEN,URINE 0.2 EU/dL (0.2)
[2021-05-25 23:41] LABS: BASOPHILS # (AUTO) 0.1 K/uL (0.0-0.2); BASOPHILS % (AUTO) 1.2 % (0.0-2.0); EOSINOPHILS % (AUTO) 5.6 % (0.0-6.0); HEMATOCRIT 42 % (39-51); LYMPHOCYTES % (AUTO) 38.4 % (20.0-44.0); MEAN CORPUSCULAR HGB CONC 33 g/dl (31.0-36.0); MEAN CORPUSCULAR VOLUME 90 fL (80-96); MONOCYTES # (AUTO) 0.5 K/uL (0.1-1.30); MONOCYTES % (AUTO) 10.5 % (2.0-12.0); NEUTROPHILS # (AUTO) 2.3 K/uL (1.8-8.9); NEUTROPHILS % (AUTO) 44.3 % (43.0-81.0); PLATELET COUNT (AUTO) 242 K/uL (150-450); WHITE BLOOD COUNT (AUTO) 5.1 K/uL (4.3-11.0)
[2021-05-25 23:47] LABS: CALCIUM, SERUM 8.8 mg/dL (8.5-10.1); POTASSIUM 4.1 mmol/L (3.5-5.1)
[2021-05-25 23:59] LABS: ALBUMIN 4.1 g/dL (3.4-5.0); BILIRUBIN,DIRECT 0.1 mg/dL (0.0-0.2); BILIRUBIN,TOTAL 0.2 mg/dL (0.2-1.0); TOTAL PROTEIN, SERUM 7.9 g/dL (6.4-8.2)
--- NOTE | 2021-05-26 02:25 | NUR ---
PATIENT ALERT SLEEPING COMFORTABLY NO COMPLAINTS
--- NOTE | 2021-05-26 03:05 | NUR ---
FACESHEET AND CLINICALS FAXED TO [facility].
[2021-05-26 05:59] VITALS: BP 124/83
--- NOTE | 2021-05-26 09:52 | NUR ---
pt not in holding room for repeat alcohol level draw. pt eloped.
== END 2021-05-26 09:54 | disposition left against medical advice (07) ==
LOC: ER 19:27
DX: R45.851 Suicidal ideations (principal); F19.10 Other psychoactive substance abuse, uncomplicated; F10.129 Alcohol abuse with intoxication, unspecified; Z20.822 Contact with and (suspected) exposure to COVID-19; F31.9 Bipolar disorder, unspecified; F17.200 Nicotine dependence, unspecified, uncomplicated; Z88.0 Allergy status to penicillin; Z91.012 Allergy to eggs; Z59.00 Homelessness unspecified; Y90.8 Blood alcohol level of 240 mg/100 ml or more
CPT/HCPCS: 36415; 80048; 80076; 80143; 80307; 80320; 81003; 85025; 87426; 99285; C9803; G0480

== ENCOUNTER 2021-05-28 18:39 | Emergency (ER) | payer OTHER ==
[~2021-05-28] VITALS: Ht 170.2 cm; Wt 77.1 kg
[2021-05-28 19:32] VITALS: BP 110/70
--- NOTE | 2021-05-28 20:00 | NUR ---
PATIENT BIBRA 40 FROM [facility]IDE [facility] C/O ETOH. PATIENT SLEEPING, EASY TO AROSUE. A/O, RR EVEN AND UNLABORED, NO SOB NOTED. 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 PATIENT CONNECTED TO MONITOR.
--- NOTE | 2021-05-28 21:10 | NUR ---
Patient eloped from facility. ER MD notified.
== END 2021-05-28 21:10 | disposition left against medical advice (07) ==
LOC: ER 18:42
DX: F10.129 Alcohol abuse with intoxication, unspecified (principal); F17.200 Nicotine dependence, unspecified, uncomplicated; Z88.0 Allergy status to penicillin; Z91.012 Allergy to eggs; Z59.00 Homelessness unspecified; Y90.9 Presence of alcohol in blood, level not specified

== ENCOUNTER 2022-07-04 09:01 | Inpatient (IN) | payer OTHER ==
[~2022-07-04] VITALS: Ht 167.6 cm; Wt 36.3 kg
[2022-07-04] MEDS ORDERED: LORAZEPAM INJ 2 MG/ML VIAL IVP ONE (09:30)
[2022-07-04] MEDS ORDERED: IV NS 0.9% 1,000 ML BAG IV ONE (09:30)
[2022-07-04] MEDS ORDERED: LORAZEPAM INJ 2 MG/ML VIAL ONE (09:31)
--- NOTE | 2022-07-04 09:40 | NUR ---
COVID TEST COLLECTED AND SENT
--- NOTE | 2022-07-04 09:40 | NUR ---
Pt in bed. seen pt. Wound cleaned. IV started on LF 20g
--- NOTE | 2022-07-04 09:45 | NUR ---
IV pulled out of LH
--- NOTE | 2022-07-04 09:48 | NUR ---
PT TAKEN TO CT VIA CLOVER
[2022-07-04 10:15] LABS: ALBUMIN 3.5 g/dL (3.4-5.0); BILIRUBIN,DIRECT 0.3 mg/dL (0.0-0.2); BILIRUBIN,TOTAL 0.6 mg/dL (0.2-1.0); CALCIUM, SERUM 8.4 mg/dL (8.5-10.1); CREATININE 1.1 mg/dL (0.6-1.3); POTASSIUM 4.2 mmol/L (3.5-5.1); TOTAL PROTEIN, SERUM 6.7 g/dL (6.4-8.2)
--- NOTE | 2022-07-04 10:16 | NUR ---
Pt returned from CT. Started on 4LNC and placed new IV on LW 20g
[2022-07-04 10:46] LABS: BASOPHILS % (AUTO) 0.3 % (0.0-2.0); EOSINOPHILS % (AUTO) 1.6 % (0.0-6.0); HEMATOCRIT 38 % (39-51); HEMOGLOBIN 12.5 g/dL (13.5-17.5); LYMPHOCYTES # (AUTO) 0.5 K/uL (0.8-4.8); LYMPHOCYTES % (AUTO) 8.7 % (20.0-44.0); MEAN CORPUSCULAR HGB CONC 33 g/dl (31.0-36.0); MEAN CORPUSCULAR VOLUME 94 fL (80-96); MONOCYTES # (AUTO) 0.5 K/uL (0.1-1.30); MONOCYTES % (AUTO) 8.8 % (2.0-12.0); NEUTROPHILS # (AUTO) 4.3 K/uL (1.8-8.9); NEUTROPHILS % (AUTO) 80.6 % (43.0-81.0); PLATELET COUNT (AUTO) 170 K/uL (150-450); RED BLOOD CELL COUNT(AUTO) 4.01 MIL/uL (4.5-6.0); WHITE BLOOD COUNT (AUTO) 5.4 K/uL (4.3-11.0)
--- NOTE | 2022-07-04 11:16 | NUR ---
CALLED NURSING SUP REGARDING PT BED
--- NOTE | 2022-07-04 12:24 | NUR ---
BED 322-1
--- NOTE | 2022-07-04 12:40 | NUR ---
Pt going to RM 322-1 Report given to Danny SANTANA
--- NOTE | 2022-07-04 13:25 | NUR ---
LIFE SCIENCE TECHNICIANSIDING COREBOARD INSPECTOR NOTE ON Patient arrived to [facility], Room 322 - bed 1, via gurney from Emergency Dept, presenting as lethargic, but easily arousable to touch, alert and oriented x 4, but withdrawn and showing a startle reflex and tremors when awakened. On telemetry patient shows sinus tachycardia in 100s to 120s. BP is high at 174/109, RR = 22. Temp = 98.6 degrees Farenheit oral, O2 Sat. = 97% on 5 LPM via NC. No medication orders currently available. Patient put on seizure precautions with all four bed side rails padded with blankets and suction equipment at bedside. Fall precautions in place: bed side rails up; brakes locked on bed; bed in lowest position; and bed alarm on. Texting hospitalist, Amita Rucker, for PRN anti-hypertensive medication. Will continue to monitor and care for patient per hospitalist POC.
[2022-07-04] MEDS ORDERED: hydrALAZINE HCL IV 20 MG VIAL IV PRN (14:30)
[2022-07-04 16:00] VITALS: BP 165/100
--- NOTE | 2022-07-04 16:30 | NUR ---
RESPONSE TO ANTI-HYPERTENSIVE PRN Despite having hydralazine 10 mg IV push, patient's BP still high. Informed hospitalist. Librium PO on a schedule ordered and ativan IV PRN ordered. Also aspiration precations and clear liquids diet and IV fluid hydration ordered.
[2022-07-04] MEDS ORDERED: Z GUARD REMEDY 4 OZ OINT TP PRN (17:30)
[2022-07-04] MEDS ORDERED: MAG HYDROX/AL HYDROX/SIMETH 30 ML UDC PO PRN (17:30)
[2022-07-04] MEDS ORDERED: ACETAMINOPHEN 325 MG TABLET PO PRN (17:30)
[2022-07-04] MEDS ORDERED: MAGNESIUM HYDROXIDE 30 ML UDC PO PRN (17:30)
[2022-07-04] MEDS ORDERED: ZOLPIDEM TARTRATE 5 MG TABLET PO PRN (17:30)
[2022-07-04] MEDS ORDERED: ONDANSETRON HCL/PF 4 MG/2 ML VIAL IVP PRN (17:30)
[2022-07-04] MEDS: IV NS 0.9% 1,000 ML IV PRN (18:15)
[2022-07-04] MEDS: CHLORDIAZEPOXIDE HCL 25 MG CAPSULE PO SCH (18:23)
--- NOTE | 2022-07-04 19:25 | NUR ---
DIRECTOR PROCESS CLOSING NOTE Patient given scheduled librium around 1800 hours and followed by PRN ativan 2mg IV at about 19:15 hours, seems more calm without tremors and breathing deep, regular, even breaths without distress. Telemetry still sinus tachycardia in low 100s. Aspiration, fall and seizure precautions all maintained. Endorsing to night nurseBrina, for GABRIELLE.
[2022-07-04] MEDS: LORAZEPAM INJ 2 MG/ML VIAL IV PRN (19:32)
--- NOTE | 2022-07-04 19:50 | NUR ---
ANNUAL GIVING OFFICER OPENING NOTE RECEIVED PATIENT AWAKE IN BED, EASILY AWAKEN, A/OX4, ABLE TO MAKE NEEDS KNOWN. ON O2 AT 2LPM, WITH BREATHING EVEN AND NON LABORED. NO S/S OF RESPIRATORY DISTRESS. IV ACCESS LEFT HAND #20G INFUSING NS AT 150 ML/HR. ALL SAFETY MEASURES MAINTAINED: BED IN LOWEST AND LOCKED POSITION, CALL LIGHT AND TRAY TABLE WITHIN EASY REACH, SIDE RAILS UP X 2. WILL CONTINUE TO MONITOR PT.
[2022-07-04 20:00] VITALS: BP 138/105
[2022-07-05] VITALS: BP 136/76
[2022-07-05 04:00] VITALS: BP 124/91
--- NOTE | 2022-07-05 05:30 | NUR ---
FOUNDER & CEO NOTE PT REPORTS FEELING ANXIOUS, RESTLESS. ATIVAN ADMINISTERED TO PT.
[2022-07-05] MEDS: LORAZEPAM INJ 2 MG/ML VIAL IV PRN ×2 (05:31→16:02)
[2022-07-05 06:14] LABS: BASOPHILS % (AUTO) 0.4 % (0.0-2.0); EOSINOPHILS % (AUTO) 3.3 % (0.0-6.0); HEMATOCRIT 40 % (39-51); HEMOGLOBIN 13.3 g/dL (13.5-17.5); LYMPHOCYTES # (AUTO) 0.6 K/uL (0.8-4.8); LYMPHOCYTES % (AUTO) 12.9 % (20.0-44.0); MEAN CORPUSCULAR HGB CONC 33 g/dl (31.0-36.0); MEAN CORPUSCULAR VOLUME 94 fL (80-96); MONOCYTES # (AUTO) 0.5 K/uL (0.1-1.30); MONOCYTES % (AUTO) 11.6 % (2.0-12.0); NEUTROPHILS # (AUTO) 3.2 K/uL (1.8-8.9); NEUTROPHILS % (AUTO) 71.8 % (43.0-81.0); PLATELET COUNT (AUTO) 182 K/uL (150-450); RED BLOOD CELL COUNT(AUTO) 4.27 MIL/uL (4.5-6.0); WHITE BLOOD COUNT (AUTO) 4.4 K/uL (4.3-11.0)
[2022-07-05 06:44] LABS: ALBUMIN 3.1 g/dL (3.4-5.0); BILIRUBIN,TOTAL 1.2 mg/dL (0.2-1.0); CALCIUM, SERUM 8.4 mg/dL (8.5-10.1); MAGNESIUM 2.4 mg/dL (1.8-2.4); PHOSPHORUS 3.7 mg/dL (2.5-4.9); TOTAL PROTEIN, SERUM 6.2 g/dL (6.4-8.2)
--- NOTE | 2022-07-05 06:50 | NUR ---
MONITORING ANALYST CLOSING NOTE LEFT PATIENT AWAKE IN BED, EASILY AWAKEN, A/OX4, ABLE TO MAKE NEEDS KNOWN. ON O2 AT 2LPM, WITH BREATHING EVEN AND NON LABORED. NO S/S OF RESPIRATORY DISTRESS. IV ACCESS LEFT HAND #20G INFUSING NS AT 150 ML/HR. ALL SAFETY MEASURES MAINTAINED: BED IN LOWEST AND LOCKED POSITION, CALL LIGHT AND TRAY TABLE WITHIN EASY REACH, SIDE RAILS UP X 2. WILL ENDORSE PT TO AM SHIFT NURSE FOR GABRIELLE..
--- NOTE | 2022-07-05 07:30 | NUR ---
GENERAL PURCHASING AGENT NOTES PT IN BED, AWAKE, ALERT AND ORIENTED, DENIES PAIN, NOT IN DISTRESS, CALL LIGHT WITHIN REACH, IV FLUIDS INFUSING WELL, NEEDS ATTENDED.
[2022-07-05] MEDS: PANTOPRAZOLE 40 MG VIAL IV SCH (08:36)
[2022-07-05] MEDS: CHLORDIAZEPOXIDE HCL 25 MG CAPSULE PO SCH ×3 (08:36→16:15)
[2022-07-05 11:40] VITALS: BP 160/109
[2022-07-05] MEDS: ENSURE CLEAR 237 ML LIQUID (MIX BERRY) PO SCH ×2 (12:50→16:15)
--- NOTE | 2022-07-05 12:54 | NUR ---
"SW Consult: SW consult requested for patient possible substance abuse. Patient presented with a flat affect. Patient was pleasant while assessing the patient. Patient brought to the hospital due to seizures. Patient stated he was brought to the hospital due to withdraw from alcohol. He shared that he has been drinking for the past 30 years. He expressed that he also abuses meth. He stated that he has had treatment in the past and has been to multiple treatment centers and last he was at [facility] as inpatient for detox. SW assessed for mental illness. He stated that 5-6 years ago he was diagnosed with depression and was on Zoloft and Remeron. He stated since then he has not seen a doctor. He denied suicidal or homicidal ideation. Pt denied visual/auditory hallucinations. 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 He stated that he is currently residing at [address] [place] [address]. Patient stated that he is living with friends. He stated he just wants resource for shelters to have as a back up but potentially upon dc he would want to return back to friends [place]. Pt has no other supportive contact. SW offered pt resources and pt was accepting of shelters and substance abuse referrals. DC PLAN: Residing at [address] [place] [address]. Patient stated that he is living with friends. He stated he just wants resource for shelters to have as a back up but potentially upon dc he would want to return back to friends [place]. Substance Abuse resources provided included: [facility] Substance Abuse Self-Helpline ([facility]) ; C[facility]LP [address] [facility]. [place] [address] ; [facility] [address] [facility] [address] ; [facility] [address] [facility] [address] ; [facility] [address] [facility] [address] ; [facility] [address] [facility] [facility] [address] ; [facility] [address] [facility] [facility] [address] ; [facility] Substance Abuse Helpline([facility] ; [facility] ; [facility] [place] [facility] [place] [facility]; [facility] Bangs; [facility] [place]; [facility] Gadiel Vitale; [facility]; [facility] [place]; [facility] [place]; [facility]; Alcoholics Anonymous -SFV; Jd-Wkmt-Uwqoydw ; Marijuana Anonymous -SFV; Narcotics Anonymous www.na.org; Shelters: [place] Alexandra [place] Provider: [facility] [place] Address: [address] [place], [address] # of Beds: 47 Population Served: [facility] 6 | [facility] Jennifer Schwab [place] Provider: [facility] Address: [address] [place] [address], [address] # of Beds: 66 Population Served: [facility] Clinked [place] Provider: First [facility] Serve Address: [address] [facility], [address] # of Beds: 56 Population Served: [facility] Ric [place] Provider: [facility] Address: [address] [facility], [address] # of Beds: 49 Population Served: [facility] 8 | [facility] Provider: First to Serve Address: [address] [facility], [address] # of Beds: 37 Population Served: [facility] Hygiene: [facility]: [address] [address] [place] ; [facility] [address] [address]yla [address] ; [facility] [address], [place] . Food Resources: [facility] at [facility]- [address]. [place]; Meet Each Need with Dignity ([facility]) [address] [facility] [place]; [facility] [address] [facility]; [facility] [address] [facility]. Mental Health resources provided: [facility] [address] [place] [address] ; [facility] [address] [facility] [address], [place], [place] [phone] ; [facility] [address] [place] [address] ; [facility] [address] [place], [place] [phone] Healthcare Clinics: [facility] [address] [facility], [address] [place]. [place] ; [facility] [address] [facility] [facility] [address] [place] [address]; [facility] [address] [facility] [place] [address] [phone]) [phone] Counseling--Outpatient [facility] [address], [place] [address] (Specializes in in-depth psychotherapy for emotional distress: anxiety, depression, interpersonal conflicts, life transitions, childhood abuse) [facility] [address] [place] [address] (Assist with solving problem marital difficulties, separation & divorce, aging parents, & grief, chronic & terminal illness) [facility] [address] [place] [address] (Deal with loss & grief, anxiety, marital difficulties) Homebound/Mental Health Services [address], [address] [place] [address] (Provide in-home mental services to people who are incapable of leaving their homes) [facility] Senior Service/Resource Center [address] [place], [place] [phone] [facility] [address] GhanshyamandreeaMitzi [place], [place] [id number] PSYCHIATRIC OUTPATIENT SERVICES [facility] Partial Hospitalization and Intensive Outpatient Program (Managed Care and [employer] Only)[address] [address] [facility] [phone] [facility] Partial Hospitalization and Outpatient [id number] [place], [place] [phone] [facility] Kop[address] [place], [place] [phone] [facility] Partial Hospitalization and Outpatient [id number] [facility] CenterjenniferBROOKD[facility], [phone] "
[2022-07-05] MEDS ORDERED: LACTULOSE 10 G/15 ML UDC (PYXIS) PO ONE (15:30)
[2022-07-05 16:00] VITALS: BP 127/77
[2022-07-05] MEDS: IV NS 0.9% 1,000 ML IV PRN (16:08)
--- NOTE | 2022-07-05 18:28 | NUR ---
REQUIREMENTS ENGINEER NOTES PATIENT IN BED, SLEEPING , CLEAR LIQUID DIET, BREATHING PATTERN NORMAL, TOLERATING ROOM AIR, IV FLUIDS INFUSING WELL, PM MEDS GIVEN, PM CARE PROVIDED, KEPT CALL LIGHT WITHIN REACH.
--- NOTE | 2022-07-05 19:35 | NUR ---
LIFTS AND CRANES INSPECTOR OPENING NOTE RECEIVED PATIENT SLEEPING IN BED, EASILY AWAKEN. PT A/OX4, ABLE TO MAKE NEEDS KNOWN. ON O2 AT 2LPM, WITH BREATHING EVEN AND NON LABORED. NO S/S OF RESPIRATORY DISTRESS. IV ACCESS LEFT HAND #20G INFUSING NS AT 150 ML/HR. ALL SAFETY MEASURES MAINTAINED: BED IN LOWEST AND LOCKED POSITION, CALL LIGHT AND TRAY TABLE WITHIN EASY REACH, SIDE RAILS UP X 2. WILL CONTINUE TO MONITOR PT.
[2022-07-05 20:00] VITALS: BP 125/63
[2022-07-06] MEDS: IV NS 0.9% 1,000 ML IV PRN ×3 (01:42→17:59)
[2022-07-06 05:57] LABS: BASOPHILS % (AUTO) 0.9 % (0.0-2.0); EOSINOPHILS % (AUTO) 5.4 % (0.0-6.0); HEMATOCRIT 39 % (39-51); HEMOGLOBIN 12.9 g/dL (13.5-17.5); LYMPHOCYTES # (AUTO) 0.7 K/uL (0.8-4.8); LYMPHOCYTES % (AUTO) 16.6 % (20.0-44.0); MEAN CORPUSCULAR HGB CONC 34 g/dl (31.0-36.0); MEAN CORPUSCULAR VOLUME 93 fL (80-96); MONOCYTES # (AUTO) 0.5 K/uL (0.1-1.30); NEUTROPHILS # (AUTO) 2.5 K/uL (1.8-8.9); NEUTROPHILS % (AUTO) 64.1 % (43.0-81.0); PLATELET COUNT (AUTO) 213 K/uL (150-450); RED BLOOD CELL COUNT(AUTO) 4.14 MIL/uL (4.5-6.0); WHITE BLOOD COUNT (AUTO) 3.9 K/uL (4.3-11.0)
[2022-07-06 06:16] LABS: ALBUMIN 2.9 g/dL (3.4-5.0); CREATININE 0.9 mg/dL (0.6-1.3); POTASSIUM 3.7 mmol/L (3.5-5.1)
--- NOTE | 2022-07-06 06:55 | NUR ---
STUNTMAN CLOSING NOTE LEFT PATIENT AWAKE IN BED, A/OX4, ABLE TO MAKE NEEDS KNOWN. ON O2 AT 2LPM, WITH BREATHING EVEN AND NON LABORED. NO S/S OF RESPIRATORY DISTRESS. IV ACCESS LEFT HAND #20G INFUSING NS AT 150 ML/HR. ALL SAFETY MEASURES MAINTAINED: BED IN LOWEST AND LOCKED POSITION, CALL LIGHT AND TRAY TABLE WITHIN EASY REACH, SIDE RAILS UP X 2. WILL ENDORSE PT TO AM SHIFT NURSE FOR GABRIELLE..
--- NOTE | 2022-07-06 07:30 | NUR ---
RN OPENING NOTE RECEIVED PATIENT IN BED, ASLEEP, EASILY AROUSED. NO SIGNS OF ACUTE DISTRESS NOTED. ON O2 @ 2LPM VIA N/C, NO SOB NOTED, BREATHING EVEN AND UNLABORED. ON TELE MONITOR SHOWING SR, HR @89. NOTED WITH IV ACCESS ON LEFT HAND #20G, INTACT AND PATENT WITH NS @ 150 ML/HR RUNNING. SAFETY MEASURE IN PLACE. BED IN LOW AND LOCKED POSITION, SIDE RAILS UP X2, CALL LIGHT PLACED WITHIN EASY REACH. WILL CONTINUE TO MONITOR PATIENT.
[2022-07-06 08:00] VITALS: BP 145/105
[2022-07-06] MEDS: CHLORDIAZEPOXIDE HCL 25 MG CAPSULE PO SCH ×3 (08:10→16:12)
[2022-07-06] MEDS: LORAZEPAM INJ 2 MG/ML VIAL IV PRN ×3 (08:10→22:30)
[2022-07-06] MEDS: PANTOPRAZOLE 40 MG VIAL IV SCH (08:10)
--- NOTE | 2022-07-06 08:10 | NUR ---
RN NOTE PT REPORTS FEELING ANXIOUS, RESTLESS. ATIVAN ADMINISTERED ORDERED. WILL CONTINUE TO MONITOR AND ASSESS PATIENT.
[2022-07-06] MEDS: ENSURE CLEAR 237 ML LIQUID (MIX BERRY) PO SCH ×3 (09:57→17:18)
[2022-07-06] MEDS ORDERED: MINERAL OIL 133 ML (PYXIS) 1 EA ENEMA RC ONE (10:30)
[2022-07-06 12:10] VITALS: BP 138/95
[2022-07-06 16:16] VITALS: BP 144/84
[2022-07-06] MEDS: NICOTINE PATCH (14MG) 14 MG PATCH.TD24 TD SCH (16:46)
--- NOTE | 2022-07-06 17:53 | NUR ---
RN NOTE PT REPORTS FEELING ANXIOUS, RESTLESS. ATIVAN ADMINISTERED ORDERED. WILL CONTINUE TO ASSESS PATIENT.
--- NOTE | 2022-07-06 18:53 | NUR ---
RN CLOSING NOTE PATIENT IN BED, AWAKE, A/O X4. NO SIGNS OF ACUTE DISTRESS NOTED. REMAINS ON O2 @ 2LPM VIA N/C, NO SOB NOTED, BREATHING EVEN AND UNLABORED. ON TELE MONITOR SHOWING SR/ST, HR @119. IV ACCESS ON LEFT UPPER ARM #20G, INTACT AND PATENT WITH NS @ 150 ML/HR RUNNING. ALL DUE MEDS GIVEN. NO EPISODES OF SEIZURE THIS SHIFT. SEIZURE PRECAUTIONS OBSERVED. SAFETY MEASURE MAINTAINED. BED IN LOW AND LOCKED POSITION, SIDE RAILS UP X2, CALL LIGHT PLACED WITHIN EASY REACH. WILL ENDORSE TO NEXT SHIFT FOR CONTINUITY OF CARE.
--- NOTE | 2022-07-06 19:35 | NUR ---
WIRE COILER MACHINE OPERATOR OPENING NOTE RECEIVED PT AWAKE IN BED. A/O X4 AND ABLE TO MAKE NEEDS KNOWN. PT ON O2 @ 2LPM VIA NC, TOLERATING WELL. NO SOB OR S/S OF RESPIRATORY DISTRESS. BREATHING EVEN AND UNLABORED. ON EXTERNAL SECURITY GUARD READING ST 122 BPM. IV ACCESS AMANDA 20G, INTACT AND PATENT, RUNNING NS @ 150 ML/HR. SAFETY PRECAUTIONS IN PLACE. BED IN LOWEST LOCKED POSITION, HOB ELEVATED, SIDE RAILS UP X3, AND CALL LIGHT AND TABLE WITHIN REACH.
[2022-07-06 20:00] VITALS: BP 110/88
--- NOTE | 2022-07-06 22:30 | NUR ---
RN NOTE PT REQUESTED ATIVAN FOR ANXIETY. ADMINISTERED ATIVAN 2 MG FOR ANXIETY ORDERED. MADE COMFORTABLE IN BED. WARM BLANKET PROVIDED. ALL NEEDS MET AT THIS TIME.
[2022-07-07] VITALS: BP 124/75
[2022-07-07] MEDS: IV NS 0.9% 1,000 ML IV PRN (04:24)
[2022-07-07 05:42] VITALS: BP 137/91
--- NOTE | 2022-07-07 06:37 | NUR ---
EMPLOYMENT LAW ATTORNEY CLOSING NOTE PT AWAKE IN BED. A/O X4 AND ABLE TO MAKE NEEDS KNOWN. PT ON O2 @ 2LPM VIA NC, TOLERATING WELL. NO SOB OR S/S OF RESPIRATORY DISTRESS. BREATHING EVEN AND UNLABORED. ON EXTERNAL PRINTING SHOP SUPERVISOR READING SR 90 BPM. IV ACCESS AMANDA 20G, INTACT AND PATENT, RUNNING NS @ 150 ML/HR. ALL DUE MEDS GIVEN ORDERED. SAFETY PRECAUTIONS IN PLACE AT ALL TIMES. BED IN LOWEST LOCKED POSITION, HOB ELEVATED, SIDE RAILS UP X3, AND CALL LIGHT AND TABLE WITHIN REACH. ALL NEEDS MET AT THIS TIME AND WILL ENDORSE TO ONCOMING NURSE FOR GABRIELLE.
[2022-07-07 07:00] VITALS: BP 147/100
--- NOTE | 2022-07-07 07:15 | NUR ---
DOCUMENTATION SPECIALIST OPENING NOTE RECEIVED PT AWAKE IN BED. A/O X4 AND ABLE TO MAKE NEEDS KNOWN. PT ON O2 @ 2LPM VIA NC, TOLERATING WELL. NO SOB OR S/S OF RESPIRATORY DISTRESS. BREATHING EVEN AND UNLABORED. ON EXTERNAL CORPORATE LAWYER READING ST 90 BPM. IV ACCESS AMANDA 20G, INTACT AND PATENT, RUNNING NS @ 150 ML/HR. SAFETY PRECAUTIONS IN PLACE. BED IN LOWEST LOCKED POSITION, HOB ELEVATED, SIDE RAILS UP X3, AND CALL LIGHT AND TABLE WITHIN REACH. WILL CONTINUE TO MONITOR THE PATIENT
[2022-07-07] MEDS: CHLORDIAZEPOXIDE HCL 25 MG CAPSULE PO SCH ×2 (08:56→13:00)
[2022-07-07] MEDS: PANTOPRAZOLE 40 MG VIAL IV SCH (08:56)
[2022-07-07] MEDS: NICOTINE PATCH (14MG) 14 MG PATCH.TD24 TD SCH (08:56)
[2022-07-07] MEDS: ENSURE CLEAR 237 ML LIQUID (MIX BERRY) PO SCH ×2 (09:04→13:00)
[2022-07-07] MEDS: LORAZEPAM INJ 2 MG/ML VIAL IV PRN (09:21)
[2022-07-07 11:41] VITALS: BP 145/102
--- NOTE | 2022-07-07 14:00 | NUR ---
COTTON FACTORIRRIGATOR SPRINKLING SYSTEM NOTES; PATIENT DISCHARGED TO HOME IN STABLE CONDITION A/O X4 ABLE TO MAKE NEEDS KNOWN. PATIENT'S BELONGINGS ACCOUNTED FOR. PATIENT WAS GIVEN DISCHARGE INSTRUCTIONS BOTH ORALLY AND IN WRITING. PATIENT VERBALIZED UNDERSTANDING. IV ACCESS REMOVED, CATHETER TIP C/D/I, PRESSURE DRESSING APPLIED, NO SIGNS OF BLEEDING NOTED. PATIENT LEFT IN STABLE CONDITION ACCOMPANIED BY TERMINAL SUPERVISOR UNTIL [facility] EXIT. CHARGE NURSE AWARE OF THE DISCHARGE.
[2022-07-07] MEDS ORDERED: CHLO25CA22 PO (15:13)
[2022-07-07] MEDS ORDERED: PANT40TA49 PO (15:13)
[2022-07-07] MEDS ORDERED: NICO-676 TD (15:13)
[2022-07-07] MEDS ORDERED: ALBU18HF2 INH (15:13)
[2022-07-08] MEDS ORDERED: PANTOPRAZOLE 40 MG TABLET.DR PO SCH (09:00)
== END 2022-07-07 13:50 | disposition home or self-care (01) | DRG 53 ==
LOC: ER 09:02 → TELE 12:51
PROVIDERS: ADMIT Nurse Practitioner Acute Care; ATTEND Nurse Practitioner Acute Care
DX: R56.9 Unspecified convulsions (principal); K56.7 Ileus, unspecified; F10.239 Alcohol dependence with withdrawal, unspecified; R74.01 Elevation of levels of liver transaminase levels; Y90.6 Blood alcohol level of 120-199 mg/100 ml; S00.81XA Abrasion of other part of head, initial encounter; Z20.822 Contact with and (suspected) exposure to COVID-19; Z88.0 Allergy status to penicillin; Z91.012 Allergy to eggs; Z91.013 Allergy to seafood; Z59.00 Homelessness unspecified; F17.210 Nicotine dependence, cigarettes, uncomplicated; W19.XXXA Unspecified fall, initial encounter; Y92.9 Unspecified place or not applicable; W22.09XA Striking against other stationary object, initial encounter
CPT/HCPCS: 36415; 70450-TC; 71045-TC; 74018; 80048-TC; 80053-TC; 80076-TC; 83690-TC; 83735-TC; 84100-TC; 85025-TC; 87081-TC; 97116-TC; 97530-TC; A4223; C9113; C9803; G0378; G0480; J0360; J2060; J7030

== ENCOUNTER 2024-07-28 01:04 | Emergency (ER) | payer OTHER ==
[~2024-07-28] VITALS: Ht 175.3 cm; Wt 93.0 kg
[~2024-07-28 01:04] MED LIST: ALBU18HF2 INH; CHLO25CA22 PO; NICO-676 TD; PANT40TA49 PO
[2024-07-28 02:10] LABS: BASOPHILS # (AUTO) 0.1 K/uL (0.0-0.2); BASOPHILS % (AUTO) 1.3 % (0.0-2.0); EOSINOPHILS # (AUTO) 0.1 K/uL (0.0-0.7); EOSINOPHILS % (AUTO) 2.1 % (0.0-6.0); HEMATOCRIT 36 % (39-51); HEMOGLOBIN 12.4 g/dL (13.5-17.5); LYMPHOCYTES # (AUTO) 1.4 K/uL (0.8-4.8); LYMPHOCYTES % (AUTO) 26.8 % (20.0-44.0); MEAN CORPUSCULAR HEMOGLOBIN 31 PG (26.0-33.0); MEAN CORPUSCULAR HGB CONC 35 g/dl (31.0-36.0); MEAN CORPUSCULAR VOLUME 90 fL (80-96); MONOCYTES # (AUTO) 0.5 K/uL (0.1-1.30); MONOCYTES % (AUTO) 8.7 % (2.0-12.0); NEUTROPHILS # (AUTO) 3.2 K/uL (1.8-8.9); NEUTROPHILS % (AUTO) 61.1 % (43.0-81.0); PLATELET COUNT (AUTO) 242 K/uL (150-450); RED BLOOD CELL COUNT(AUTO) 4.02 MIL/uL (4.5-6.0); RED CELL DISTRIBUTION WIDTH 16.2 % (11.5-15.0); WHITE BLOOD COUNT (AUTO) 5.2 K/uL (4.3-11.0)
[2024-07-28 02:17] LABS: CALCIUM, SERUM 8.7 mg/dL (8.5-10.1); CARBON DIOXIDE 27 mmol/L (21-32); CHLORIDE 108 mmol/L (98-107); CREATININE 1.1 mg/dL (0.6-1.3); GLUCOSE 96 mg/dL (74-106); POTASSIUM 3.6 mmol/L (3.5-5.1); SODIUM SERUM 145 mmol/L (136-145); UREA NITROGEN, BLOOD 12 mg/dL (7-18)
[2024-07-28 02:31] LABS: ALANINE AMINOTRANSFERASE 28 U/L (12-78); ALBUMIN 3.9 g/dL (3.4-5.0); ALCOHOL, BLOOD 363 mg/dL (0-10); ALKALINE PHOSPHATASE 122 U/L (46-116); ASPARTATE AMINOTRANSFERASE 50 U/L (15-37); BILIRUBIN,DIRECT 0.1 mg/dL (0.0-0.2); BILIRUBIN,TOTAL 0.4 mg/dL (0.2-1.0); NT-PRO BNP 26 pg/mL (0-125); SALICYLATE 4.6 mg/dL (2.8-20.0); TOTAL PROTEIN, SERUM 7.7 g/dL (6.4-8.2)
[2024-07-28 02:42] LABS: ACETAMINOPHEN <10 ug/ml (10-30)
[2024-07-28 03:02] LABS: APPEARANCE,URINE CLEAR (CLEAR); BILIRUBIN,URINE NEGATIVE (NEGATIVE); BLOOD, URINE TRACE-INTA Ery/uL (NEGATIVE); COLOR,URINE YELLOW (YELLOW); KETONES,URINE NEGATIVE (NEGATIVE); LEUKOCYTE ESTERASE ,URINE NEGATIVE (NEGATIVE); NITRITE, URINE NEGATIVE (NEGATIVE); PH,URINE 5.5 (5.0-8.0); PROTEIN,URINE NEGATIVE (NEGATIVE); UGLUCOSE NEGATIVE (NEGATIVE); UROBILINOGEN,URINE 0.2 EU/dL (0.2)
[2024-07-28 03:09] LABS: AMPHETAMINE, URINE NEGATIVE (NEGATIVE); BARBITURATE, URINE NEGATIVE (NEGATIVE); CANNABINOID, URINE NEGATIVE (NEGATIVE); COCCAINE, URINE NEGATIVE (NEGATIVE); OPIATE, URINE NEGATIVE (NEGATIVE); PHENCYCLIDINE SCREEN,URINE NEGATIVE (NEGATIVE)
[2024-07-28 03:10] LABS: BENZODIAZEPINE, URINE POSITIVE (NEGATIVE)
[2024-07-28 03:23] LABS: ADD URINE CULTURE NO; BACTERIA,URINE None seen /HPF (None Seen); RBC,URINE 0-2 /HPF (0-2); SQUAMOUS EPITHELIAL CELL,UR Rare /HPF (None Seen); WBC,URINE 0-2 /HPF (0-3)
[2024-07-28] MEDS ORDERED: LORAZEPAM 1 MG TABLET ONE ×2 (12:30→18:31)
[2024-07-28] MEDS: LORAZEPAM 1 MG TABLET PO ONE ×2 (12:32→18:33)
[2024-07-28 18:44] VITALS: BP 139/90; TEMP 98.6; O2SAT 95
== END 2024-07-28 18:44 ==
LOC: ER 01:10
DX: F10.129 Alcohol abuse with intoxication, unspecified (principal); F33.1 Major depressive disorder, recurrent, moderate; F17.200 Nicotine dependence, unspecified, uncomplicated; Z59.00 Homelessness unspecified; Z79.899 Other long term (current) drug therapy; Z88.0 Allergy status to penicillin; Z20.822 Contact with and (suspected) exposure to COVID-19; Y90.8 Blood alcohol level of 240 mg/100 ml or more
CPT/HCPCS: 36415; 71045-TC; 80048-TC; 80076-TC; 81001; 83880; 84484-TC; 85025-TC; G0480